=== PATIENT | male | born 1965 | race Caucasian/White ===

== ENCOUNTER 2016-05-25 19:58 | Inpatient (IN) ==
[2016-05-25] MEDS ORDERED: HYDROmorphone 2 MG/1 ML VIAL IV STA (20:45)
[2016-05-25] MEDS ORDERED: ONDANSETRON 4 MG/2 ML VIAL IV STA (20:45)
--- NOTE | 2016-05-25 20:50 | Emergency Department Note ---
Arrival - Arrival Chief Complaint: Fall Stated Complaint: fall ED Nursing Triage Note: Patient to room via ems. Patient was seen at [facility] earlier today for a fall from the roof. Patient has multiple fx. Mode of Arrival: Stretcher Source: Patient Time Seen by Provider: 05/25/16 20:45 - History of Present Illness HPI Narrative: This 51-year-old white male presents on referral from [place] where he was initially seen following a fall off a roof. He incurred a right broken wrist, right distal broken fibula, and left broken scapula as a part of his fall. He did not have loss of consciousness and all supportive CTs were unremarkable. Currently he is in a considerable amount of discomfort but otherwise stable medically. Onset (ago): hour(s) (this patient presents 4 hours post incident) Allergies/Adverse Reactions: Allergies Allergy/AdvReac Type Severity Reaction Status Date / Time No Known Allergies Allergy Unverified 05/25/16 20:08 Home Medications: Home Medications Medication Instructions Recorded Confirmed Type No Known Home Medications [No 05/25/16 05/25/16 History Known Home Medications] Review of System - Review of System 12 point system: reviewed and no additional remarkable complaints except as stated - Review of System Musculoskeletal: Present: as per HPI Medical,Surgical,& Family Hx - Social History Smoking Status: Never smoker Frequency of Alcohol Use: None Type of Drug Use: None Exam Physical Examination: GENERAL: Well developed, well nourished white male in considerable discomfort. HEENT: Normocephalic. No trauma. Moist mucous membranes. EOMI. PERRLA. NECK: Supple. No adenopathy. CARDIAC: Regular. No murmurs. Heart rate 94 CHEST: Clear to auscultation. No respiratory distress. O2 sat 97% ABDOMEN: Soft. Nontender. Active bowel sounds. EXTREMITIES: No trauma. And her swollen right wrist, left ankle, right anterior femue, and left scapula No pedal edema. SKIN: No diaphoresis. No rash. NEURO: Alert. Neuro intact. No focal deficits. Vital Signs: Vital Signs Temperature 99.1 F 05/25/16 21:00 Pulse Rate 94 H 05/25/16 21:00 Respiratory Rate 14 05/25/16 21:00 Blood Pressure 126/99 05/25/16 21:00 O2 Sat by Pulse Oximetry 97 05/25/16 20:01 Course - Reevaluation(s) Reevaluation #1: Discussed with patient the fact that he will be admitted overnight for pain control. - Consultations Consultation #1: Discussed with Dr. Wynn who will admit the patient overnight for pain control Results - Diagnostic Findings Procedure: CT Abdomen and Pelvis: image reviewed by me, report reviewed by me ( abdomen acute left scapular fracture, 15 mm soft tissue density near the head of the pancreas and the dm caval space, splenomegaly DJD changes of lumbar spine), CT: image reviewed by me, report reviewed by me (CT brain: No acute disease CT cervical spine no acute disease although C5-C6 C6-C7 DJD noted), X- ray: image reviewed by me, report reviewed by me (right wrist reveals distal radial and ulnar head fracture with posterior displacement, right ankle reveals distal fibular fracture left scapular fracture) Disposition Clinical Impression: multiple contusions, hematoma right anterior femur, right distal fibula fracture, Left scapula fracture, right distal radial/ulnar fractures Case discussed with: patient Disposition: Still a Patient Condition: Stable Time of Disposition: 21:24
[2016-05-25] MEDS ORDERED: ONDANSETRON 4 MG/2 ML VIAL ONE (20:51)
[2016-05-25] MEDS ORDERED: HYDROmorphone 2 MG/1 ML VIAL ONE (20:51)
[2016-05-25] MEDS ORDERED: ONDANSETRON 4 MG/2 ML VIAL IV PRN (21:25)
[2016-05-25 21:46] LABS: Basophils % 0.3 % (0.0-0.8); Eosinophils # 0.2 10*3/uL (0.0-0.87); Eosinophils % 2.3 % (0.00-10.9); Hematocrit 35.9 VOL% (42.0-52.0); Hemoglobin 12.5 GM/DL (14.0-18.0); Immature Granulocytes % 0.4 %; Immature Granulocytes Absolute 0.03 #; Lymphocytes # 1.1 10*3/uL (1.4-4.0); Lymphocytes % 14.2 % (21.2-54.2); Mean Corpuscular HGB Conc 34.8 GM/DL (32-36); Mean Corpuscular Hemoglobin 31 PG (27-34); Mean Corpuscular Volume 89.8 FL (87-102); Mean Platelet Volume 9.9 FL (9.6-12.0); Monocytes # 0.9 10*3/uL (0.11-0.8); Monocytes % 11.2 % (1.7-12.7); Neutrophils # 5.6 10*3/uL (1.4-7.4); Neutrophils % 71.6 % (38.7-73.9); Platelet Count 65 T/CUMM (130-400); Red Cell Distribution Width 15.3 % (9.3-17.3); White Blood Count 7.8 T/CUMM (4-12)
[2016-05-25 21:57] LABS: INR 1.1; PT Patient Result 11.9 SECS; Partial Thromboplastin Time 27.3 SECS (0-40)
[2016-05-25 22:08] LABS: Albumin 3.1 G/DL (3.4-5.0); Calcium 8.1 MG/DL (8.5-10.1); Osmolality,Calculated 286.8 MOS/KG (273-304); Potassium 4.1 MMOL/L (3.5-5.1); Total Protein 6.6 G/DL (6.4-8.3)
[2016-05-25] MEDS: HYDROmorphone 2 MG/1 ML VIAL IV PRN (23:43)
[2016-05-26] MEDS: HYDROmorphone 2 MG/1 ML VIAL IV PRN (04:12)
[2016-05-26] MEDS ORDERED: MORPHINE 2 MG/1 ML SYRINGE IV ONE (08:10)
[2016-05-26] MEDS ORDERED: ceFAZolin 2,000 MG in PREMIX 1 EACH IV ONE (08:45)
--- NOTE | 2016-05-26 08:55 | Orthopedic History & Physical ---
History of Present Illness Chief complaint: right wrist, left shoulder, right ankle and thigh pain History of present illness: Mr. Davenport is a 51 year old male who fell roughly 12 feet yesterday while correcting a pole barn. He denies any loss of consciousness, chest, abdominal pain. Patient was initially seen in [place] and transferred here for further care. He is complaining mostly of left posterior shoulder pain. He was placed in a removable wrist splint and he is removed it because of severe pain. 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 He denies any continuing problems with his kidneys. Past surgical history is negative. No medicines. No drug allergies. Denies use of tobacco currently. Denies use of alcohol and recreational drugs. 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 Alert and oriented Lungs clear to auscultation Heart regular rate and rhythm Abdomen soft Cervical spine nontender. Left upper extremity is neurovascularly intact. He's tender posteriorly over his scapula. Right upper extremity shows a silver fork deformity. Skins intact. Compartments soft. Range of motion limited secondary pain. Sensation is intact to light touch to his first dorsal webspace, index finger and small finger. Motor functions intact but limited secondary to pain. Right lower extremity shows a lateral thigh subcutaneous hematoma. The hematoma is firm. His muscular compartments are soft and nontender. His right ankle shows no deformity. He is nontender medially. He is mildly swollen and tender over the distal aspect of his fibula. Skin, sensation, motors pulses are intact to his foot and ankle. Multiple radiographs and CT scans were reviewed. He has a right comminuted intra-articular distal radius fracture with an associated ulnar neck fracture. He has a minimally displaced distal fibular spiral fracture with an appropriately aligned mortise. His shoulder x-rays and CT scan were reviewed. CT scan demonstrates a inferior pole scapula fracture which is displaced. CT scan also demonstrates a finding of a 15 mm mass adjacent to his pancreas. Impression: Right closed comminuted intra-articular distal radius and ulna fractures. Right SER type II ankle fracture Left inferior pole scapula fracture Right thigh contusion/hematoma Incidental finding of a 15 mm abdominal mass Plan: I've placed the patient in a sugar tong splint. I've advised operative fixation of his wrist with more than likely an external fixator. I discussed that after the initial reduction I will decide on whether to proceed with external fixation or whether he is a candidate for internal fixation. I've advised closed treatment of his fractures of his fibula and scapula. I'm going to consult general surgery for assessment of the the mass and heme/onc for thrombocytopenia and splenomegaly. I discussed the risks and benefits and the severity of the wrist injury and the likelihood of continued problems such as stiffness, pain and arthritis. Home Medications Medication Instructions Recorded Confirmed Type No Known Home Medications [No 05/25/16 05/25/16 History Known Home Medications] Allergies Allergy/AdvReac Type Severity Reaction Status Date / Time No Known Allergies Allergy Verified 05/25/16 22:58 Medical,Surgical,& Family Hx - Medical History Cardio: Comment Only: Cardiovascular Problems (hx of heart murmur) - Surgical History Abdominal Surgeries: Patient denies: Abdominal Surgery - Family History Family History: Reports;: Family Cancer (Mother, Grandmother), Family Stroke ( Grandmother) Denies;: Family Anesthesia Reaction, Family Diabetes, Family Heart Disease, Family Hematology, Family Hypertension, Family Psychiatric Problems, Additional Family History - Social History Smoking Status: Never smoker Frequency of Alcohol Use: None Type of Drug Use: None Exam - Constitutional Vitals: Period Temp Pulse Resp BP Sys/Canales Pulse Ox Last 24 Hr 98.1 F-98.9 F 80-88 18-20 141-158/99-105 95-97 Results - Labs CBC & BMP: 05/25/16 21:32 05/25/16 21:32
[2016-05-26 09:21] LABS: Basophils % 0.3 % (0.0-0.8); Eosinophils # 0.2 10*3/uL (0.0-0.87); Eosinophils % 2.5 % (0.00-10.9); Hematocrit 34.2 VOL% (42.0-52.0); Hemoglobin 11.6 GM/DL (14.0-18.0); Immature Granulocytes % 0.4 %; Immature Granulocytes Absolute 0.03 #; Lymphocytes # 0.9 10*3/uL (1.4-4.0); Lymphocytes % 11.9 % (21.2-54.2); Mean Corpuscular HGB Conc 33.9 GM/DL (32-36); Mean Corpuscular Hemoglobin 31 PG (27-34); Mean Corpuscular Volume 90.5 FL (87-102); Mean Platelet Volume 9.8 FL (9.6-12.0); Monocytes # 0.9 10*3/uL (0.11-0.8); Monocytes % 12.8 % (1.7-12.7); Neutrophils # 5.3 10*3/uL (1.4-7.4); Neutrophils % 72.1 % (38.7-73.9); Platelet Count 66 T/CUMM (130-400); Red Blood Count 3.78 MC/CUMM (3.8-5.5); Red Cell Distribution Width 15.6 % (9.3-17.3); White Blood Count 7.3 T/CUMM (4-12)
[2016-05-26] MEDS ORDERED: FAMOTIDINE 20 MG TABLET PO ONE (09:37)
[2016-05-26] MEDS ORDERED: LORazepam 1 MG TABLET PO ONE (09:37)
[2016-05-26 09:41] LABS: Platelet Estimate Decreased
[2016-05-26 09:48] LABS: Calcium 8.1 MG/DL (8.5-10.1); Osmolality,Calculated 282.3 MOS/KG (273-304); Potassium 3.8 MMOL/L (3.5-5.1)
[2016-05-26] MEDS: MORPHINE 2 MG/1 ML SYRINGE IV PRN ×2 (11:29→21:35)
[2016-05-26] MEDS: DEXTROSE 5% LACTATED RINGERS 1,000 ML IV SCH (11:34)
[2016-05-26] MEDS: PANTOPRAZOLE 40 MG TABLET PO SCH (11:37)
[2016-05-26] MEDS ORDERED: MIDAZOLAM 2 MG/2 ML VIAL ONE (12:30)
[2016-05-26] MEDS ORDERED: ROPIVACAINE 0.5% 30 ML VIAL ONE (12:30)
[2016-05-26] MEDS ORDERED: fentaNYL 100 MCG/2 ML VIAL ONE (12:31)
[2016-05-26] MEDS ORDERED: BACITRACIN OINT 0.9 GM PACK TOP ONE (13:40)
[2016-05-26] MEDS ORDERED: ONDANSETRON 4 MG/2 ML VIAL ONE (14:10)
[2016-05-26] MEDS ORDERED: PROPOFOL 200 MG/20 ML VIAL IV ONE (14:10)
[2016-05-26] MEDS ORDERED: LIDOCAINE 2% 5 ML VIAL ONE (14:10)
[2016-05-26] MEDS ORDERED: PHENYLEPHRINE 1 MG/10 ML SYRINGE IV ONE (14:10)
--- NOTE | 2016-05-26 15:26 | Operative Note ---
Date of procedure: 05/26/16 Procedure: DIAGNOSIS: Right comminuted intra-articular distal radius fracture and ulnar neck fracture PROCEDURE: Closed reduction pinning right comminuted intra-articular distal radius fracture with application of unilateral external fixator (CPT #25896, [id number]) SURGEON: Kingsley ANESTHESIA: General with supraclavicular block PROCEDURE and FINDINGS: After adequate anesthesia was induced, his right upper extremity is prepped and draped in usual sterile fashion. His limb was exsanguinated with Esmarch and the tourniquet was inflated to 250 mmHg. The IBETH external fixator system was utilized. Longitudinal incisions were made over the radial border of the second metacarpal and distal radial diaphysis. Using sharp and blunt dissection, the second metacarpal and radius shaft was exposed. 2 Schanz pins were placed in the second metacarpal and radial shaft each. The wounds were irrigated. Tourniquet was released at an estimated time of 15 minutes. The IBETH external fixator system was applied and reduction was obtained. 2 0.0625 K wires were introduced through the radial styloid. The pins were bent. A sterile dressing and sugar tong splint was applied. Image intensification was used in multiple planes to boat driver adequacy of the reduction. The patient was extubated and transferred recovery room in stable condition. Surgeon / Physician: Deep Wynn Jr. Results - Labs CBC & BMP: 05/26/16 08:58 05/26/16 08:58 Discharge Plan - Discharge Medications No Action No Known Home Medications [No Known Home Medications] - Follow Up or Referral - Forms/Instructions
[2016-05-26] MEDS ORDERED: MAGNESIUM HYDROXIDE SUSP 30 ML UDCUP PO PRN (15:31)
--- NOTE | 2016-05-26 16:10 | XRay Report ---
XR wrist 3V RT Clinical Information: CR PINNING RT WRIST Dr. Panda Total fluoroscopy time: 0.3 minutes Findings: Fluoroscopic images of the right wrist demonstrate new orthopedic hardware in place. Hardware appears intact without evidence of acute complication. Images were evaluated by the attending surgeon at the time of the procedure and deemed appropriate. Distal radius and ulnar comminuted fractures appear in improved alignment. Impression: Intraoperative fluoroscopy as detailed above. PROCEDURE INTERPRETED AT [facility] DEPARTMENT OF RADIOLOGY Final Report Signed by: Marcos Hitchcock
--- NOTE | 2016-05-26 18:13 | Orthopedic Progress Note ---
Orthopedics - Subjective Interval history: comfortable post op dense block. findings discussed. Continue with orders. Exam - Constitutional Vitals: Period Temp Pulse Resp BP Sys/Canales Pulse Ox Last 24 Hr 97.9 F-99.0 F 75-93 16-23 130-170/83-105 95-100 Results - Labs CBC & BMP: 05/26/16 08:58 05/26/16 08:58 Quality Measures - VTE Contraindication to Pharmacological VTE Prophylaxis: Thrombocytopenia
--- NOTE | 2016-05-26 20:30 | Anesthesia ---
Anesthesia Post OP - Post Ansesthetic Evaluation Patient seen in post op: Yes Resp: within normal limits CV: within normal limits Mental: within normal limits Temp: within normal limits [id number]: within normal limits Nausea and Vomiting: within normal limits Pain: within normal limits
[2016-05-26] MEDS: ceFAZolin 2,000 MG in PREMIX 1 EACH IV SCH (21:35)
[2016-05-27] MEDS: MORPHINE 2 MG/1 ML SYRINGE IV PRN ×5 (01:19→20:19)
[2016-05-27] MEDS: ceFAZolin 2,000 MG in PREMIX 1 EACH IV SCH (05:24)
[2016-05-27 05:50] LABS: Basophils % 0.3 % (0.0-0.8); Eosinophils # 0.2 10*3/uL (0.0-0.87); Hematocrit 30.8 VOL% (42.0-52.0); Hemoglobin 10.7 GM/DL (14.0-18.0); Immature Granulocytes % 0.3 %; Immature Granulocytes Absolute 0.02 #; Lymphocytes # 1.6 10*3/uL (1.4-4.0); Lymphocytes % 20.3 % (21.2-54.2); Mean Corpuscular HGB Conc 34.7 GM/DL (32-36); Mean Corpuscular Hemoglobin 31 PG (27-34); Mean Corpuscular Volume 88.3 FL (87-102); Mean Platelet Volume 9.6 FL (9.6-12.0); Monocytes # 1.2 10*3/uL (0.11-0.8); Monocytes % 14.9 % (1.7-12.7); Neutrophils # 4.9 10*3/uL (1.4-7.4); Neutrophils % 61.2 % (38.7-73.9); Platelet Count 50 T/CUMM (130-400); Red Blood Count 3.49 MC/CUMM (3.8-5.5); Red Cell Distribution Width 14.8 % (9.3-17.3); White Blood Count 7.9 T/CUMM (4-12)
[2016-05-27] MEDS: DEXTROSE 5% LACTATED RINGERS 1,000 ML IV SCH ×3 (05:53→07:26)
[2016-05-27 06:12] LABS: Eosinophils 3 % (0-10); Hypochromasia 1+; Lymphocytes 23 % (20-55); Ovalocytes Slight; Platelet Estimate Decreased; Segmented Neutrophils 59 % (50-85); Total Cells Counted 100
--- NOTE | 2016-05-27 07:37 | Orthopedic Progress Note ---
Orthopedics - Subjective Interval history: Much more comfortable. Block is starting to wear off. He has limited flexion and extension of his rue. Mobilize with OT and PT today. We will need platform walker, bedside commode, and possibly a wheelchair for home use. Surgical and heme/onc consults are pending. Range of motion right hand was encouraged. I am anticipating discharge home tomorrow. Exam - Constitutional Vitals: Period Temp Pulse Resp BP Sys/Canales Pulse Ox Last 24 Hr 97.9 F-99.4 F 75-109 16-23 121-170/69-103 93-100 Results - Labs CBC & BMP: 05/27/16 05:39 05/26/16 08:58 Quality Measures - VTE Contraindication to Pharmacological VTE Prophylaxis: Thrombocytopenia
--- NOTE | 2016-05-27 08:21 | Oncology Progress Note ---
Oncology Subjective PN Interval history: Patient with 12 foot fall with wrist ankle and scapular fracture now status post fixation of right upper extremity fracture. Patient was seen and examined this morning. Also old records reviewed including a CT scan from September 2015. This documented a nodular liver consistent with cirrhosis with probable esophageal varices present. The spleen was enlarged at that time with 18 cm measurements. The patient does report approximately 40 pound weight loss but over a 4 year interval. His family history is notable for his mother from pancreatic cancer. He states he drank very heavily in the past. He also reports prior narcotic addiction both of these approximately 3-5 years ago. He does not report current use of either substance. The combination of these would likely explain his cirrhosis. He is not aware of any prior hepatitis testing. He does not report seeing a doctor regularly since in the last 5 years. On physical examination he appears nontoxic. No scleral icterus is noted. There is fullness to palpate of the left upper quadrant. In my opinion his CBC values correlate with known splenomegaly. I do not recommend any further inpatient hematology workup. Exam - Constitutional Vitals: Period Temp Pulse Resp BP Sys/Canales Pulse Ox Last 24 Hr 97.9 F-99.4 F 76-109 16-23 121-170/69-103 93-100 Results - Labs CBC & BMP: 05/27/16 05:39 05/26/16 08:58 Quality Measures - VTE Contraindication to Pharmacological VTE Prophylaxis: Thrombocytopenia
--- NOTE | 2016-05-27 09:34 | General Surgery Consult Note ---
Assessment and Plan - Time spent with patient Time spent with patient: Less than 30 minutes (1) Upper abdominal mass Status: Acute Assessment and plan: 51WM admitted by dr stoner sp fall w RUE, RLE, and scapular fx. dr neri consulted for abdominal mass seen on CT. dr neri feels this is a lymph node that has not changed from CT done last september. dr neri discussed bx vs follow up w pancreatic specialist in [place] as an OP if pt is concerned due to moms from pancreatic cancer. pt refused at this time stating he will pray about it and he will follow up w his primary doctor in 3 months. Current Visit: Yes History of Present Illness Chief complaint: fall History of present illness: Mr. Davenport is a 51 year old male admitted by dr stoner p 12 foot fall from his barn. he was initially seen in [place] and transferred here for further care. dr stoner performed surgery for right forearm fx and nonoperative management of RLE and scapular fx. pts CT scan showed splenomegaly and a soft tissue mass w peripheral calcified densities in the portocaval wander region. dr neri has been consulted to evaluate. pt is concerned mainly because his mom of pancreatic cancer and wants to make sure he doesnt have it as well. pt has no complaints of abdominal pain and no masses found. Home Medications Medication Instructions Recorded Confirmed Type No Known Home Medications [No 05/25/16 05/25/16 History Known Home Medications] Allergies Allergy/AdvReac Type Severity Reaction Status Date / Time No Known Allergies Allergy Verified 05/25/16 22:58 Medical,Surgical,& Family Hx - Medical History Cardio: Comment Only: Cardiovascular Problems (hx of heart murmur) - Surgical History Abdominal Surgeries: Patient denies: Abdominal Surgery - Family History Family History: Reports;: Family Cancer (Mother, Grandmother), Family Stroke ( Grandmother) Denies;: Family Anesthesia Reaction, Family Diabetes, Family Heart Disease, Family Hematology, Family Hypertension, Family Psychiatric Problems, Additional Family History - Social History Smoking Status: Never smoker Frequency of Alcohol Use: None Type of Drug Use: None - Constitutional Constitutional: Present: as per HPI Exam - Constitutional Vitals: Period Temp Pulse Resp BP Sys/Canales Pulse Ox Last 24 Hr 97.9 F-99.4 F 76-109 16-23 121-170/69-103 93-100 51WM, NAD, alert and oriented chest clear cv rrr abd soft, nt, no masses appreciated ext right arm casted w external fixators Quality Measures - VTE Contraindication to Pharmacological VTE Prophylaxis: Thrombocytopenia Results - Labs CBC & BMP: 05/27/16 05:39 05/26/16 08:58 Lab Results: I have reviewed the past 24 hour labs - Diagnostic Findings Procedure: CT Abdomen and Pelvis: report reviewed by me (soft tissue mass portocaval wander region)
[2016-05-27] MEDS: PANTOPRAZOLE 40 MG TABLET PO SCH (10:21)
[2016-05-28] MEDS: MORPHINE 2 MG/1 ML SYRINGE IV PRN ×2 (02:12→09:48)
[2016-05-28 05:42] LABS: Basophils % 0.1 % (0.0-0.8); Eosinophils # 0.4 10*3/uL (0.0-0.87); Eosinophils % 5.7 % (0.00-10.9); Hematocrit 30.6 VOL% (42.0-52.0); Hemoglobin 10.4 GM/DL (14.0-18.0); Immature Granulocytes % 0.4 %; Immature Granulocytes Absolute 0.03 #; Lymphocytes # 1.8 10*3/uL (1.4-4.0); Lymphocytes % 23.9 % (21.2-54.2); Mean Corpuscular Hemoglobin 31 PG (27-34); Mean Corpuscular Volume 91.9 FL (87-102); Mean Platelet Volume 10.1 FL (9.6-12.0); Monocytes # 1.1 10*3/uL (0.11-0.8); Monocytes % 15.4 % (1.7-12.7); Neutrophils % 54.5 % (38.7-73.9); Platelet Count 49 T/CUMM (130-400); Red Blood Count 3.33 MC/CUMM (3.8-5.5); Red Cell Distribution Width 14.6 % (9.3-17.3); White Blood Count 7.4 T/CUMM (4-12)
[2016-05-28 06:08] LABS: Hypochromasia 1+; Ovalocytes Slight; Platelet Estimate Decreased
--- NOTE | 2016-05-28 07:36 | Discharge Summary ---
Hospital Course - Hospital Course Hospital Course: Mr Davenport was admitted after a 13 ft fall from a roof. Patient was transferred from [place]. He sustained a left extra-articular inferior pole scapula fracture, a SER 2 right ankle fracture, right thigh superficial hematoma , right severely comminuted intra-articular distal radius fracture and ulnar neck fracture. During his initial evaluation at [place], CT scans demonstrated a 15 mm peripancreatic mass which is felt to be a calcified lymph node. It is not changed in size since his prior scan in September 2015. He was also found to have thrombocytopenia, anemia, mild splenomegaly and his previous scan noted a nodular liver. General surgery and hematology/oncology were consulted. The patient has elected to follow up with his primary care physician regarding any further follow-up on the mass. Hematology/oncology felt that his splenomegaly, thrombocytopenia and anemia was related to cirrhotic liver disease and no further workup was required. The patient was previous heavy drinker and recreational drug user. His toxicology screen and alcohol level were negative on admission. The patient underwent closed reduction, pinning and external fixator application for his right intra-articular distal radius fracture. His scapula and fibular fractures were treated closed. The patient received physical and occupational therapy. He was discharged home in stable condition. Specialty Discharge - Follow Up or Referrals Follow up with: Deep Wynn Jr., MD [Physician] - Discharge Plan - Discharge Data Disposition: Disch To Home/Self Care Condition at Discharge: Stable Discharge Diet: advance to your usual diet Activity: ambulate only with your walker, no lifting Hygiene: keep area(s) dry - Discharge Medications No Action No Known Home Medications [No Known Home Medications] - Follow Up or Referral Follow Up: Deep Wynn Jr., MD [Physician] - - Forms/Instructions Additional Discharge Instructions: Follow-up appointment in 10-14 days. Keep splint clean, dry and intact. Encourage range of motion right hand. Weightbearing as tolerated left upper extremity and right lower extremity. He can be weightbearing as tolerated through right elbow. He is nonweightbearing through his right hand. Wear cast boot 23 and half hours per day to right lower extremity. Remove for hygiene purposes. Arrange for bedside commode and platform walker for home use. Prescription for [place] 7.5 with 30 tablets was written. Exam - Constitutional Vitals: Period Temp Pulse Resp BP Sys/Canales Pulse Ox Last 24 Hr 98.1 F-100.6 F 83-103 17-20 119-154/74-94 94-99 Discharge Results Procedures and tests throughout hospitalization: Pending Orders 05/29/16 04:00 Comp Blood Count Auto Diff IN AM Labs on day of discharge: Labs from last 24 hours 05/28/16 05:02 WBC 7.4 RBC 3.33 L Hgb 10.4 L Hct 30.6 L MCV 91.9 MCH 31 MCHC 34.0 RDW 14.6 Plt Count 49 L MPV 10.1 Neut % (Auto) 54.5 Lymph % (Auto) 23.9 Dolores % (Auto) 15.4 H Eos % (Auto) 5.7 Baso % (Auto) 0.1 Neut # (Auto) 4.0 Lymph # (Auto) 1.8 Dolores # (Auto) 1.1 H Eos # (Auto) 0.4 Baso # (Auto) 0.0 Immature Gran % 0.4 Nucleated RBC % 0.0 Immature Gran # 0.03 Nucleated RBCs # 0.00 Platelet Estimate Decreased Hypochromasia 1+ Ovalocytes Slight Morphology Comment DS: Provider Date of admission: 05/25/16 21:24 Primary care physician: . No PCP Attending physician on admission: Deep Wynn Jr., Consults: 05/26/16 08:46 Consult to Physician [CONS] Routine Comment: 15 mm mass adjacent to pancreas Consulting Provider: Stefano Wagner Consulting Provider Notified: Yes When should Consulting Provider be notified: Now Consult to Specialist Group: Surgery When should Consulting Provider be notified: Now Person Notified: kane called Date Notified: 05/26/16 Time Notified: 09:58 05/26/16 09:00 Consult to Physician [CONS] Routine Comment: splenomegaly, thrombocytopenia, anemia, Consulting Provider: Jason Berry Consulting Provider Notified: Yes When should Consulting Provider be notified: Now Consult to Specialist Group: Hematology When should Consulting Provider be notified: Now Person Notified: oziel called Date Notified: 05/26/16 Time Notified: 10:05 05/26/16 15:31 Consult to Occupational Therapy [CONS] Routine Reason for Occupational Therapy: Evaluate and Treat Start Therapy: Tomorrow Consult Comment: A, AA, PROM hand, pendulums b shoulders Consult to Physical Therapy [CONS] Routine Reason for Physical Therapy: Evaluate and Treat Start Therapy: Tomorrow Consult Comment: david valdovinos, josselin r hand, wbat r elbow 05/26/16 15:39 Consult to Pharmacy [CONS] Routine Reason for Pharmacy Consult: Adjust Meds Renal Funct Discharging clinician: Deep Wynn Jr., Expected date of discharge: 05/28/16
[2016-05-28] MEDS: PANTOPRAZOLE 40 MG TABLET PO SCH (09:47)
--- NOTE | 2016-05-28 09:55 | General Surgery Progress Note ---
Assessment and Plan - Time spent with patient Time spent with patient: Less than 30 minutes (1) Upper abdominal mass Status: Acute Assessment and plan: 51WM admitted by dr wynn sp fall w RUE, RLE, and scapular fx. dr neri consulted for abdominal mass seen on CT. dr neri feels this is a lymph node that has not changed from CT done last september. dr neri discussed bx vs follow up w pancreatic specialist in [place] as an OP if pt is concerned due to moms from pancreatic cancer. pt refused at this time stating he will pray about it and he will follow up w his primary doctor in 3 months. 05/28/16 pt going home today. he still wants to just follow up w his pcp for CT. will give pt dr neri's office number w prn appt and if he changes his mind and would like to see a specialist, he will call and let dr neri know. Current Visit: Yes Exam - Constitutional Vitals: Period Temp Pulse Resp BP Sys/Canales Pulse Ox Last 24 Hr 98.6 F-100.6 F 90-103 17-20 119-160/74-118 94-99 Results - Labs CBC & BMP: 05/28/16 05:02 05/26/16 08:58 Quality Measures - VTE Contraindication to Pharmacological VTE Prophylaxis: Thrombocytopenia Specialty Discharge - Follow Up or Referrals Follow up with: Stefano Neri MD [Physician] - (call if needed. [phone]) Deep Wynn Jr., MD [Physician] - 06/10/16 12:45 pm
[2016-05-28 13:36] VITALS: BP 151/87
== END 2016-05-28 15:50 | disposition home or self-care (01) | DRG 512 ==
LOC: EDUNIT# → EDBD → N.ED 19:58 → N.EDINP 21:24 → N.3E 22:02
PROVIDERS: ADMIT Orthopaedic Surgery; ATTEND Orthopaedic Surgery

== ENCOUNTER 2017-06-24 03:12 | Inpatient (IN) ==
[2017-06-24] MEDS ORDERED: ALUM/MAG/SIMETH/LIDO VISC 1:1 30 ML BOTTLE PO STA (04:30)
[2017-06-24] MEDS ORDERED: SODIUM CHLORIDE 0.9% 500 ML IV STA (04:30)
[2017-06-24] MEDS ORDERED: PANTOPRAZOLE 40 MG VIAL IV STA (04:30)
[2017-06-24] MEDS ORDERED: MORPHINE 2 MG/1 ML SYRINGE IV STA (04:30)
[2017-06-24] MEDS ORDERED: ONDANSETRON 4 MG/2 ML VIAL IV STA (04:30)
[2017-06-24] MEDS ORDERED: MORPHINE 2 MG/1 ML SYRINGE ONE (04:36)
[2017-06-24] MEDS ORDERED: ONDANSETRON 4 MG/2 ML VIAL ONE (04:36)
[2017-06-24] MEDS ORDERED: PANTOPRAZOLE 40 MG VIAL IV ONE (04:36)
[2017-06-24] MEDS ORDERED: ALUM/MAG/SIMETH/LIDO VISC 1:1 30 ML BOTTLE PO ONE (05:00)
[2017-06-24 05:10] LABS: Basophils % 0.2 % (0.0-0.8); Eosinophils # 0.3 10*3/uL (0.0-0.87); Hematocrit 42.8 VOL% (42.0-52.0); Immature Granulocytes % 0.5 %; Immature Granulocytes Absolute 0.07 #; Lymphocytes # 0.9 10*3/uL (1.4-4.0); Lymphocytes % 6.6 % (21.2-54.2); Mean Corpuscular HGB Conc 37.1 GM/DL (32-36); Mean Corpuscular Hemoglobin 32 PG (27-34); Mean Corpuscular Volume 85.8 FL (87-102); Mean Platelet Volume 9.8 FL (9.6-12.0); Monocytes # 0.8 10*3/uL (0.11-0.8); Monocytes % 6.2 % (1.7-12.7); Neutrophils # 11.1 10*3/uL (1.4-7.4); Neutrophils % 84.5 % (38.7-73.9); Platelet Count 80 T/CUMM (130-400); Red Blood Count 4.99 MC/CUMM (3.8-5.5); Red Cell Distribution Width 13.9 % (9.3-17.3); White Blood Count 13.1 T/CUMM (4-12)
[2017-06-24 05:15] LABS: Hemoglobin 15.9 GM/DL (14.0-18.0)
[2017-06-24 05:22] LABS: Apearance,Urine CLEAR (Clear); Bilirubin,Urine Negative (Negative); Blood, Urine Negative (Negative); Glucose,Urine (UA) Negative (Negative); Ketones,Urine Negative (Negative); Mucus,Urine Occasional /LPF (Occasional); Nitrite,Urine Negative (Negative); Protein,Urine Negative; RBC,Urine <1 /HPF (0-4); Urine Color Yellow (Yellow); Urine Specific Gravity 1.016 (1.001-1.035); WBC,Urine <1 /HPF (0-6)
[2017-06-24 05:28] LABS: Giant Platelets Few; Platelet Estimate Decreased
[2017-06-24 05:29] LABS: Ammonia 101 UMOL/L (11-32); Hypochromasia Slight; Ovalocytes Slight
[2017-06-24 05:33] LABS: Lactic Acid 1.6 MMOL/L (0.4-2.0)
[2017-06-24 05:35] LABS: Alanine Aminotransferase 68 U/L (16-61); Albumin 3.2 G/DL (3.4-5.0); Alkaline Phosphatase 76 U/L (45-117); Amylase 47 U/L (25-115); Aspartate Amino Transferase 47 U/L (0-37); Blood Urea Nitrogen 16 MG/DL (7-18); Calcium 8.5 MG/DL (8.5-10.1); Glucose 103 MG/DL (74-106); Osmolality,Calculated 279.4 MOS/KG (273-304); Potassium 3.4 MMOL/L (3.5-5.1); Sodium 140 MMOL/L (136-145); Total Protein 7.2 G/DL (6.4-8.3); Troponin I Only < 0.015 NG/ML (0.00-0.045)
[2017-06-24] MEDS ORDERED: MORPHINE 2 MG/1 ML SYRINGE IV PRN (11:12)
[2017-06-24 11:16] LABS: Barbiturates Screen,Urine Negative (Negative); Benzodiazepines Screen,Urine Negative (Negative); Cannabinoid Screen,Urine Positive (Negative); Opiate Screen,Urine Negative (Negative); Phencyclidine Screen,Urine Negative (Negative)
[2017-06-24] MEDS ORDERED: SODIUM CHLORIDE 0.9% 1,000 ML IV SCH (11:30)
[2017-06-24 11:48] LABS: Triglycerides 47 MG/DL (2-150)
[2017-06-24 11:56] LABS: HIV Antigen/Antibody Result Nonreactive (Nonreactive)
[2017-06-24] MEDS ORDERED: POTASSIUM CHLORIDE INJ 30 MEQ in DEXTROSE 5% LACTATED RINGERS 1,000 ML IV SCH (12:00)
[2017-06-24] MEDS ORDERED: THIAMINE INJ 100 MG, FOLIC ACID INJ 1 MG, MULTIVITAMIN INJ 10 ML in DEXTROSE 5% NACL 0.... IV SCH (12:30)
[2017-06-24 13:39] LABS: Hepatitis A Ab IgM Quant 0.12 Index; Hepatitis A Ab IgM Result Negative (Negative); Hepatitis B Core IgM Result Negative (Negative); Hepatitis B Surface Ag Quant < 0.10 Index; Hepatitis B Surface Ag Result Negative (Negative); Hepatitis C Virus Ab Quant > 11.00 Index; Hepatitis C Virus Ab Result Positive (Negative)
[2017-06-24] MEDS ORDERED: LACTULOSE 20 GM/30 ML UDCUP PO SCH ×2 (14:00→21:00)
[2017-06-24] MEDS: FAMOTIDINE 20 MG/2 ML VIAL IV SCH ×2 (14:55→23:10)
[2017-06-24] MEDS: LACTULOSE 20 GM/30 ML UDCUP PO SCH ×3 (14:58→21:44)
[2017-06-25] MEDS: LACTULOSE 20 GM/30 ML UDCUP PO SCH ×6 (02:49→21:13)
[2017-06-25 08:00] LABS: Basophils % 0.4 % (0.0-0.8); Eosinophils # 0.6 10*3/uL (0.0-0.87); Eosinophils % 8.5 % (0.00-10.9); Hematocrit 42.2 VOL% (42.0-52.0); Hemoglobin 15.2 GM/DL (14.0-18.0); Immature Granulocytes % 0.6 %; Immature Granulocytes Absolute 0.04 #; Lymphocytes # 1.8 10*3/uL (1.4-4.0); Lymphocytes % 25.1 % (21.2-54.2); Mean Corpuscular Hemoglobin 32 PG (27-34); Mean Corpuscular Volume 88.8 FL (87-102); Mean Platelet Volume 9.8 FL (9.6-12.0); Monocytes # 0.8 10*3/uL (0.11-0.8); Monocytes % 10.7 % (1.7-12.7); Neutrophils # 3.9 10*3/uL (1.4-7.4); Neutrophils % 54.7 % (38.7-73.9); Platelet Count 63 T/CUMM (130-400); Red Blood Count 4.75 MC/CUMM (3.8-5.5); Red Cell Distribution Width 13.8 % (9.3-17.3); White Blood Count 7.2 T/CUMM (4-12)
[2017-06-25 08:19] LABS: Hypochromasia Slight; Ovalocytes Slight; Platelet Estimate Decreased
[2017-06-25 08:27] LABS: Albumin 3.2 G/DL (3.4-5.0); Bilirubin,Total 1.4 MG/DL (0.2-1.0); Calcium 8.5 MG/DL (8.5-10.1); Potassium 4.1 MMOL/L (3.5-5.1); Total Protein 7.1 G/DL (6.4-8.3)
[2017-06-25] MEDS ORDERED: LIDOCAINE 1% 5 ML VIAL ONE (11:51)
[2017-06-25] MEDS ORDERED: PROPOFOL 200 MG/20 ML VIAL IV ONE (11:51)
[2017-06-25] MEDS ORDERED: fentaNYL 100 MCG/2 ML VIAL ONE (12:10)
[2017-06-25] MEDS: FAMOTIDINE 20 MG/2 ML VIAL IV SCH ×2 (13:12→23:54)
[2017-06-25] MEDS: FOLIC ACID 1 MG TABLET PO SCH (13:12)
[2017-06-25] MEDS: MORPHINE 2 MG/1 ML SYRINGE IV PRN ×2 (14:46→21:18)
[2017-06-25] MEDS: ONDANSETRON 4 MG/2 ML VIAL IV PRN ×2 (14:47→21:14)
[2017-06-26] MEDS: LACTULOSE 20 GM/30 ML UDCUP PO SCH ×7 (02:27→21:22)
[2017-06-26] MEDS: ONDANSETRON 4 MG/2 ML VIAL IV PRN ×3 (03:06→20:14)
[2017-06-26] MEDS: MORPHINE 2 MG/1 ML SYRINGE IV PRN ×2 (03:09→11:00)
[2017-06-26] MEDS: FOLIC ACID 1 MG TABLET PO SCH (08:56)
[2017-06-26] MEDS: FAMOTIDINE 20 MG/2 ML VIAL IV SCH (11:53)
[2017-06-26] MEDS ORDERED: ACETAMINOPHEN 500 MG TABLET PO PRN (20:06)
[2017-06-27] MEDS: FAMOTIDINE 20 MG/2 ML VIAL IV SCH (00:23)
[2017-06-27] MEDS: LACTULOSE 20 GM/30 ML UDCUP PO SCH ×6 (02:22→21:31)
[2017-06-27] MEDS: PANTOPRAZOLE 40 MG TABLET PO SCH ×2 (08:44→21:31)
[2017-06-27] MEDS: FOLIC ACID 1 MG TABLET PO SCH (08:44)
[2017-06-27 09:05] LABS: Albumin 3.2 G/DL (3.4-5.0); Bilirubin,Total 1.5 MG/DL (0.2-1.0); Calcium 8.7 MG/DL (8.5-10.1); Osmolality,Calculated 276.3 MOS/KG (273-304); Total Protein 7.2 G/DL (6.4-8.3)
[2017-06-27] MEDS: MORPHINE 2 MG/1 ML SYRINGE IV PRN (09:28)
[2017-06-27] MEDS: ONDANSETRON 4 MG/2 ML VIAL IV PRN (09:28)
[2017-06-27] MEDS ORDERED: ACETAMINOPHEN 325 MG TABLET PO PRN (12:11)
[2017-06-28] MEDS: LACTULOSE 20 GM/30 ML UDCUP PO SCH ×4 (02:22→14:28)
[2017-06-28 06:42] LABS: Basophils % 0.3 % (0.0-0.8); Eosinophils # 0.6 10*3/uL (0.0-0.87); Eosinophils % 9.6 % (0.00-10.9); Hematocrit 39.6 VOL% (42.0-52.0); Hemoglobin 14.2 GM/DL (14.0-18.0); Immature Granulocytes % 0.5 %; Immature Granulocytes Absolute 0.03 #; Lymphocytes # 1.5 10*3/uL (1.4-4.0); Mean Corpuscular HGB Conc 35.9 GM/DL (32-36); Mean Corpuscular Hemoglobin 31 PG (27-34); Mean Platelet Volume 10.6 FL (9.6-12.0); Monocytes # 0.7 10*3/uL (0.11-0.8); Monocytes % 11.8 % (1.7-12.7); Neutrophils % 51.8 % (38.7-73.9); Platelet Count 63 T/CUMM (130-400); Red Blood Count 4.55 MC/CUMM (3.8-5.5); Red Cell Distribution Width 13.8 % (9.3-17.3); White Blood Count 5.8 T/CUMM (4-12)
[2017-06-28 07:11] LABS: Hypochromasia 1+; Ovalocytes Slight
[2017-06-28 07:12] LABS: Burr Cells Slight; Giant Platelets Few; Microcytosis Slight; Platelet Estimate Decreased
[2017-06-28] MEDS ORDERED: BISACODYL 5 MG TABLET PO SCH (09:41)
[2017-06-28] MEDS ORDERED: LACTULOSE 160 GM/240 ML BOTTLE RECTAL ONE (09:59)
[2017-06-28] MEDS: PANTOPRAZOLE 40 MG TABLET PO SCH (10:08)
[2017-06-28] MEDS: FOLIC ACID 1 MG TABLET PO SCH (10:08)
[2017-06-28] MEDS ORDERED: SODIUM PHOSPHATE ENEMA 133 ML BOTTLE RECTAL ONE (11:00)
[2017-06-28 17:31] VITALS: BP 123/81
[2017-06-29] MEDS ORDERED: BISACODYL 5 MG TABLET PO SCH (09:00)
== END 2017-06-28 18:00 | disposition home or self-care (01) | DRG 433 ==
LOC: EDUNIT# → EDBD → N.ED 03:12 → N.EDINP 09:28 → SUATTDRO 09:28 → N.EDINP 12:30 → N.5E 13:03
PROVIDERS: ADMIT Internal Medicine Cardiovascular Disease; ATTEND Internal Medicine
PROC: EGDWEBL (ICD-10-PCS; 2017-06-25 11:35)